=== PATIENT | male | born 1985 | race Caucasian/White ===

== ENCOUNTER 2017-04-07 19:06 | Emergency (ER) | payer MEDICAID ==
[2017-04-07] MEDS ORDERED: PENICILLIN VK 250 MG TABLET PO STA (19:30)
[2017-04-07] MEDS ORDERED: PENICILLIN VK 250 MG TABLET PO ONE (19:31)
--- NOTE | 2017-04-07 19:32 | ED Physician Documentation ---
PD HPI HEENT - Stated complaint Stated Complaint: THROAT PAIN - Chief complaint Chief Complaint: Heent - History obtained from History obtained from: Patient - History of Present Illness Timing - onset: Other (31-year-old with 2 days of sore throat, low-grade fever, no other URI symptoms. He finds it hard to swallow due to tonsillar enlargement. Recently exposed to strep throat.) Review of Systems Constitutional: reports: Fever, Chills, Myalgias, Fatigue Ears: denies: Loss of hearing, Ear pain Nose: denies: Rhinorrhea / runny nose, Congestion Throat: reports: Sore throat Respiratory: denies: Dyspnea, Cough PD PAST MEDICAL HISTORY - Past Medical History Past Medical History: No Cardiovascular: None Respiratory: None Neuro: None Endocrine/Autoimmune: None GI: None : None HEENT: None Psych: None Musculoskeletal: None Derm: None - Past Surgical History Past Surgical History: No - Present Medications Home Medications: Ambulatory Orders Medication Instructions Recorded Confirmed HYDROcod/ACETAM 5/325 [[place] 5/325] 1 ea PO Q6H PRN #10 tablet 01/22/16 diazePAM [Valium] 5 mg PO TID PRN #15 tablet 01/22/16 predniSONE [Deltasone] 40 mg PO DAILY 5 Days 01/22/16 Penicillin V Potassium 500 mg PO QID #40 tablet 04/07/17 - Allergies Allergies/Adverse Reactions: Allergies Allergy/AdvReac Type Severity Reaction Status Date / Time No Known Drug Allergies Allergy Verified 01/22/16 17:00 - Social History Does the pt smoke?: Yes Smoking Status: Current every day smoker Does the pt drink ETOH?: Yes Does the pt have substance abuse?: No - Immunizations Immunizations are current?: No Immunizations: TDAP >10years/unknown - POLST Patient has POLST: No PD ED PE NORMAL - Vitals Vital signs reviewed: Yes - General General: Alert and oriented X 3, No acute distress - HEENT HEENT: PERRL, EOMI, Other (He has severe exudative tonsillitis with mild asymmetry, right greater than left but no uvular deviation. There is moderate anterior cervical adenopathy.) - Derm Derm: No rash - Neuro Neuro: Alert and oriented X 3, Normal speech - Psych Psych: Normal mood, Normal affect Results - Vitals Vitals: Vital Signs - 24 hr 04/07/17 04/07/17 19:13 19:48 Temperature 36.3 C L Heart Rate 118 H 117 H Respiratory 17 17 Rate Blood Pressure 102/62 112/72 O2 Saturation 98 98 Oxygen O2 Source Room air - Labs Labs: Laboratory Tests 04/07/17 19:16 Group A Strep Rapid POSITIVE H Departure - Departure Disposition: Home, Self Care Clinical Impression: Exudative tonsillitis Condition: Good Record reviewed to determine appropriate education?: Yes Instructions: ED Peritonsillar Infec Abx No I andD Prescriptions: Penicillin V Potassium 500 mg PO QID #40 tablet Comments: Call your doctor to arrange a follow-up appointment, make the next available appointment. In the interim, return anytime if worse or if new symptoms develop. Discharge Date/Time: 04/07/17 19:50
[2017-04-07 19:49] VITALS: BP 112/72
[2017-04-07 20:08] LABS: RAPID STREP SCREEN REAGENT QC YELLOW (YELLOW)
== END 2017-04-07 19:50 | disposition home or self-care (01) ==
LOC: ED 19:06
DX: J03.80 Acute tonsillitis due to other specified organisms (principal); F17.200 Nicotine dependence, unspecified, uncomplicated
CPT/HCPCS: 87430; 99283; A9270

== ENCOUNTER 2017-10-24 17:59 | Emergency (ER) | payer MEDICAID ==
[2017-10-24] MEDS ORDERED: IPRATROPIUM/ALBUTEROL 3 ML NEB INH STA (19:50)
[2017-10-24] MEDS ORDERED: predniSONE 20 MG TABLET PO STA (19:50)
--- NOTE | 2017-10-24 19:53 | ED Physician Documentation ---
PD HPI URI - Stated complaint Stated Complaint: COUGH/RUNNY NOSE/FATIGUE - Chief complaint Chief Complaint: Resp - History obtained from History obtained from: Patient, Family - History of Present Illness Timing - onset: How many days ago (3) Timing duration: Days (3) Timing details: Gradual onset Pain level max: 0 Pain level now: 0 Associated symptoms: Fever, Chills, Nasal congestion, Rhinorrhea, Dry cough, Dyspnea (wheezing) Contributing factors: Sick contact (), Other (1ppd smoker). No: Immunocompromised Improves by: Rest Worsened by: Activity, Breathing Recently seen: Not recently seen Review of Systems Constitutional: reports: Fever (Subjective), Chills Nose: reports: Rhinorrhea / runny nose, Congestion Throat: reports: Sore throat Cardiac: denies: Chest pain / pressure Respiratory: reports: Dyspnea, Cough, Wheezing GI: denies: Nausea, Vomiting, Diarrhea Skin: denies: Rash Musculoskeletal: denies: Neck pain, Back pain Neurologic: denies: Headache PD PAST MEDICAL HISTORY - Past Medical History Cardiovascular: None Respiratory: None Neuro: None Endocrine/Autoimmune: None GI: None : None HEENT: None Psych: None Musculoskeletal: None Derm: None - Past Surgical History Past Surgical History: No - Present Medications Home Medications: Ambulatory Orders Medication Instructions Recorded Confirmed HYDROcod/ACETAM 5/325 [[place] 5/325] 1 ea PO Q6H PRN #10 tablet 01/22/16 10/24/17 diazePAM [Valium] 5 mg PO TID PRN #15 tablet 01/22/16 10/24/17 predniSONE [Deltasone] 40 mg PO DAILY 5 Days tablet 01/22/16 10/24/17 Penicillin V Potassium 500 mg PO QID #40 tablet 04/07/17 10/24/17 Albuterol Sulf [Ventolin Hfa 2 puffs INH Q4HR PRN #1 inhaler 10/24/17 Inhaler] Benzonatate [Tessalon Perle] 100 - 200 mg PO TID PRN #30 capsule 10/24/17 predniSONE [Prednisone] 40 mg PO DAILY #10 tablet 10/24/17 - Allergies Allergies/Adverse Reactions: Allergies Allergy/AdvReac Type Severity Reaction Status Date / Time No Known Drug Allergies Allergy Verified 01/22/16 17:00 - Social History Does the pt smoke?: Yes Smoking Status: Current every day smoker Does the pt drink ETOH?: Yes Does the pt have substance abuse?: No - Immunizations Immunizations are current?: No Immunizations: TDAP >10years/unknown - POLST Patient has POLST: No PD ED PE NORMAL - Vitals Vital signs reviewed: Yes - General General: Alert and oriented X 3, No acute distress, Well developed/nourished - HEENT HEENT: PERRL, Ears normal, Moist mucous membranes - Neck Neck: Supple, no meningeal sign, No adenopathy - Cardiac Cardiac: RRR - Respiratory Respiratory: No respiratory distress, Other (Wheezing bilaterally) - Abdomen Abdomen: Soft, Non tender, Non distended - Derm Derm: Warm and dry, No rash - Neuro Neuro: Alert and oriented X 3 - Psych Psych: Normal mood, Normal affect Results - Vitals Vitals: Vital Signs - 24 hr 10/24/17 10/24/17 10/24/17 18:40 20:02 20:12 Temperature 36.7 C 36.9 C Heart Rate 102 H 97 90 Respiratory 24 18 16 Rate Blood Pressure 126/84 H 132/81 H O2 Saturation 98 97 Oxygen O2 Source Room air - Labs Labs: Laboratory Tests 10/24/17 18:46 Influenza A (Rapid) Negative Influenza B (Rapid) Negative Influenza Types A,B Ag - - Rads (name of study) cxr Radiology: Prelim report reviewed, EMP read contemporaneously, See rad report ( normal) PD MEDICAL DECISION MAKING - ED course Complexity details: reviewed results, re-evaluated patient, considered differential, d/w patient, d/w family ED course: Patient is a 32-year-old male who presents to the emergency department with what appears to be a viral upper respiratory infection with wheezing. Counseled to stop smoking. Given a nebulizer treatment here and feels better. Will place on an inhaler, steroids and antitussives for home. We will have him follow-up with his doctor for further evaluation and care. He is well-appearing , nontoxic. No hypoxia or respiratory distress. Patient counseled regarding signs and symptoms for which I believe and urgent re-evaluation would be necessary. Patient with good understanding of and agreement to plan and is comfortable going home at this time This document was made in part using voice recognition software. While efforts are made to proofread this document, sound alike and grammatical errors may occur. Departure - Departure Disposition: 01 Home, Self Care Clinical Impression: Viral URI Condition: Good Instructions: ED Viral Syndrome Follow-Up: Te Contreras MD [Primary Care Provider] - Within 1 week Prescriptions: Albuterol Sulf [Ventolin Hfa Inhaler] 2 puffs INH Q4HR PRN #1 inhaler PRN Reason: Wheezing Benzonatate [Tessalon Perle] 100 - 200 mg PO TID PRN #30 capsule PRN Reason: Cough predniSONE [Prednisone] 40 mg PO DAILY #10 tablet Comments: Please keep the tessalon perles away from your children as it can be toxic to them. Return if you worsen. Discharge Date/Time: 10/24/17 20:24
--- NOTE | 2017-10-24 19:54 | XRAY Report ---
EXAM: CHEST RADIOGRAPHY EXAM DATE: 10/24/2017 07:18 PM. CLINICAL HISTORY: Productive cough. COMPARISON: None. TECHNIQUE: 2 views. FINDINGS: Lungs/Pleura: No focal opacities evident. No pleural effusion. No pneumothorax. Normal volumes. Mediastinum: Heart and mediastinal contours are unremarkable. Other: None. IMPRESSION: Normal 2-view chest radiography. [facility] Referring Provider Line: [phone] SITE ID: [id number]
[2017-10-24 20:02] VITALS: BP 132/81
== END 2017-10-24 20:24 | disposition home or self-care (01) ==
LOC: ED 17:59
DX: J06.9 Acute upper respiratory infection, unspecified (principal); B97.89 Other viral agents as the cause of diseases classified elsewhere; F17.200 Nicotine dependence, unspecified, uncomplicated
CPT/HCPCS: 71046; 87275; 87276; 94664; 99283; 99284; J7512; J7620

== ENCOUNTER 2017-11-01 14:06 | Emergency (ER) | payer MEDICAID ==
--- NOTE | 2017-11-01 14:19 | ED Physician Documentation ---
PD HPI MALE - Stated complaint Stated Complaint: MALE - Chief complaint Chief Complaint: General - History obtained from History obtained from: Patient - History of Present Illness Timing - onset: How many days ago (4) Timing - duration: Days (4) Timing - details: Gradual onset, Still present (worsening consistently) Associated symptoms: Testiclar pain, Scrotal swelling. No: Dysuria, Urinary frequency, Discharge, Genital sore / lesion PD HPI MALE CONTRIB FACTORS: Sexually active. No: Exposed to STD Similar symptoms before: Has not had sx before Recently seen: Not recently seen Review of Systems Constitutional: denies: Fever, Chills Throat: denies: Sore throat Cardiac: denies: Chest pain / pressure, Palpitations Respiratory: denies: Dyspnea, Cough GI: denies: Abdominal Pain, Nausea, Vomiting, Diarrhea : denies: Dysuria, Frequency, Discharge Skin: denies: Rash, Lesions PD PAST MEDICAL HISTORY - Past Medical History Cardiovascular: None Respiratory: None Neuro: None Endocrine/Autoimmune: None GI: None : None HEENT: None Psych: None Musculoskeletal: None Derm: None - Past Surgical History Past Surgical History: No - Present Medications Home Medications: Ambulatory Orders Medication Instructions Recorded Confirmed Doxycycline Monohydrate 100 mg PO BID #14 tablet 11/01/17 HYDROcod/ACETAM 5/325 [[place] 5/325] 1 tab PO Q6H PRN #12 tablet 11/01/17 Naproxen 375 mg PO BID #20 tablet 11/01/17 - Allergies Allergies/Adverse Reactions: Allergies Allergy/AdvReac Type Severity Reaction Status Date / Time No Known Drug Allergies Allergy Verified 11/01/17 14:45 - Social History Does the pt smoke?: Yes Smoking Status: Current every day smoker Does the pt drink ETOH?: Yes Does the pt have substance abuse?: No - Immunizations Immunizations are current?: No Immunizations: TDAP >10years/unknown - POLST Patient has POLST: No PD ED PE NORMAL - Vitals Vital signs reviewed: Yes - General General: Alert and oriented X 3, No acute distress, Well developed/nourished - Abdomen Abdomen: Normal bowel sounds, Soft, Non tender - Male Male : Other (penis normal. No discharge. left testicle and scrotum normal. Right with fullness and swelling/tender posterior to testicle and above it c/w epididymis, however the testicle does seem to be at angle lie so concern for impinged blood flow from swelling. ) - Back Back: No CVA TTP - Derm Derm: Normal color, Warm and dry - Neuro Neuro: Alert and oriented X 3, No motor deficit, Normal speech Results - Vitals Vitals: Oxygen O2 Source Room air - Labs Labs: Laboratory Tests 11/01/17 11/01/17 14:29 14:29 Urine Color YELLOW Urine Clarity CLEAR Urine pH 8.0 H Ur Specific [place] 1.015 Urine Protein NEGATIVE Urine Glucose (UA) NEGATIVE Urine Ketones NEGATIVE Urine Occult Blood NEGATIVE Urine Nitrite NEGATIVE Urine Bilirubin NEGATIVE Urine Urobilinogen 0.2 (NORMAL) Ur Leukocyte Esterase NEGATIVE Ur Microscopic Review NOT INDICATED Urine Culture Comments NOT INDICATED C.trachomatis RNA (TMA) DETECTED A Chlamydia/GC Comment SEE NOTE N.gonorrhoeae RNA (TMA) NOT DETECTED - Rads (name of study) testicle U/S Radiology: Prelim report reviewed (swelling of epididymis, testicle normal with flow. ) PD MEDICAL DECISION MAKING - ED course Complexity details: reviewed results, considered differential, d/w patient Departure - Departure Disposition: 01 Home, Self Care Clinical Impression: Testicular/scrotal pain, Epididymitis with no abscess Condition: Stable Record reviewed to determine appropriate education?: Yes Instructions: ED Epididymitis Follow-Up: Te Contreras MD [Primary Care Provider] - Prescriptions: Doxycycline Monohydrate 100 mg PO BID #14 tablet HYDROcod/ACETAM 5/325 [[place] 5/325] 1 tab PO Q6H PRN #12 tablet PRN Reason: Pain Naproxen 375 mg PO BID #20 tablet Comments: The ultrasound shows fullness of the epididymis but a normal testicle. Your urine does not show signs of infection. Looks to be therefore more isolated epididymitis. This is likely to be an STD but the culture report will tell for sure in a few days. We will start off with doxycycline twice daily for the next week. This would treat reasonably regular bacteria as well. Use naproxen twice daily for inflammation. Activity as is comfortable. For pain and add Tylenol and/or hydrocodone if needed short-term but this should improve over the couple of days. The culture results will be available in about 3 days and will call you with it. Discharge Date/Time: 11/01/17 16:13
[2017-11-01] MEDS ORDERED: IBUPROFEN 600 MG TABLET PO STA (14:33)
[2017-11-01] MEDS ORDERED: ACETAMINOPHEN 325 MG TABLET PO STA (14:33)
[2017-11-01 14:40] LABS: BILIRUBIN,URINE NEGATIVE (NEGATIVE); GLUCOSE, URINE (UA) NEGATIVE (NEGATIVE); KETONES,URINE (UA) NEGATIVE (NEGATIVE); LEUKOCYTE ESTERASE, URINE NEGATIVE (NEGATIVE); NITRITE,URINE NEGATIVE (NEGATIVE); OCCULT BLOOD,URINE NEGATIVE (NEGATIVE); PROTEIN,URINE NEGATIVE (NEGATIVE); UROBILINOGEN,URINE 0.2 (NORMAL) E.U./dL (NORMAL)
[2017-11-01 14:53] LABS: CLARITY,URINE CLEAR (CLEAR)
[2017-11-01] MEDS ORDERED: HYDROcod/ACETAM 5/325 MG TABLET PO STA (15:51)
[2017-11-01] MEDS ORDERED: DOXYCYCLINE 100 MG TABLET PO STA (15:51)
[2017-11-01 16:13] VITALS: BP 140/78
--- NOTE | 2017-11-01 17:06 | Ultrasound Report ---
DATE OF SERVICE: 11/01/2017 SCROTAL DUPLEX: 11/01/2017 CLINICAL INDICATION: Right-sided pain and swelling. TECHNIQUE: Real-time sonographic vascular imaging was performed by the hack driver through the scrotum utilizing both color-flow and Doppler spectral analysis. Multiple medical office representative static images were saved for review. FINDINGS: The right testicle measures 4.2 x 3.0 x 2.2 cm. It demonstrates normal flow and echotexture. A small hydrocele is present. There is fullness of the right epididymal tail, with increase in vascularity, compatible with epididymitis. The left testicle measures 3.9 x 2.9 x 2.3 cm. It demonstrates normal flow. Multiple small intraparenchymal calcifications are present. No mass is seen. The left epididymis is unremarkable. IMPRESSION: 1. HYPERVASCULARITY AND FULLNESS OF THE RIGHT EPIDIDYMAL TAIL, COMPATIBLE WITH EPIDIDYMITIS. 2. LEFT TESTICULAR MICROLITHIASIS. FOLLOWUP ULTRASOUND IN ONE YEAR IS RECOMMENDED FOR SURVEILLANCE. TD: 11/01/2017 18:01
== END 2017-11-01 16:13 | disposition home or self-care (01) ==
LOC: ED 14:06
DX: N50.811 Right testicular pain (principal); N50.82 Scrotal pain; N45.1 Epididymitis; F17.200 Nicotine dependence, unspecified, uncomplicated
CPT/HCPCS: 76870; 81003; 87491; 87591; 93975; 99283; A9270; 81001; 87086